=== PATIENT | female | born 1950 | race Caucasian/White ===

== ENCOUNTER → 2020-03-22 | Day surgery (SDC) | payer OTHER ==
--- NOTE | 2020-03-23 11:35 | OP ---
DATE OF OPERATION: 03/22/2020 PREOPERATIVE DIAGNOSIS: Abnormal right mammography. POSTOPERATIVE DIAGNOSIS: Abnormal right mammography. PROCEDURE: Right breast stereotactic needle biopsy with clip x2. SURGEON: Crystal Newell MD ANESTHESIA: Local. COMPLICATIONS: None. This is a sterile procedure. INDICATION FOR PROCEDURE: Patient underwent routine screening mammography that noted new calcification in the right 4 o'clock posteriorly. On my review, I felt there were some calcifications in the outer right breast as well that were new compared to her mammography in 2018, therefore my recommendation was a needle biopsy of both these areas. The procedure was discussed with her, all questions answered. PROCEDURE IN DETAIL: Patient was brought to [facility] in [place], laid prone on the [place] table. Using the CC approach, the calcifications in the 4 o'clock posterior right breast were identified. A sterile prep was obtained. A target was chosen. There was a positive stroke margin. Using Betadine, 1% lidocaine, a 9-gauge Suros device was used to take several cores from this area. Cores showed calcifications within them. These were handled using calcification protocol. A bar-shaped clip was deployed in the area. Hemostasis was assured with direct pressure. Next the patient was repositioned, and the calcifications in the outer right breast were identified. A sterile prep was obtained. A target was chosen. There was a positive stroke margin. Using Betadine, 1% lidocaine, a new needle was used to take several cores from this area. Cores showed calcification within them. These were handled using calcification protocol. A bow tie-shaped clip was deployed in the area. Hemostasis was assured with direct pressure. Both the incisions were closed with Steri-Strips. She tolerated the procedure well and left breast imaging center in good condition. CRYSTAL NEWELL M.D. [id number]
--- NOTE | 2020-03-24 14:56 | PATH ---
Surgical Pathology Report Patient Name: BEE HILLS [facility]. Rec. #: [id number] /Age/Gender: 1950 (Age: 69) / F Account: [id number] Location: [facility] Taken: 03/22/2020 Received: 03/22/2020 Reported: 03/24/2020 Physicians: Crystal Min M.D. Specimen(s) Received A: RIGHT BREAST SITE 1 SPECIMEN WITH CALCIFICATIONS B: RIGHT BREAST SITE 1 SPECIMEN WITHOUT CALCIFICATIONS C: RIGHT BREAST SITE 2 SPECIMEN WITH CALCIFICATIONS D: RIGHT BREAST SITE 2 SPECIMEN WITHOUT CALCIFICATIONS Clinical History Nonpalpable lesion Mammographic findings: Microcalcification, suspicious Final Diagnosis A. breast, right, site 1, with calcifications, stereotactic biopsy: Benign breast tissue showing fibroadenoma with associated stromal calcifications. Focal usual ductal hyperplasia (UDH). B. breast, right, site 1 without calcifications, stereotactic biopsy: Benign breast tissue showing focal usual ductal hyperplasia (UDH) WITH APOCRINE METAPLASIA. C. breast, right, siTe 2 with calcifications, stereotactic biopsy: Breast tissue showing Fibroadenoma with associated stromal calcifications AND ATYPICAL LOBULAR HYPERPLASIA (ALH). (See note) D. breast, right, siTe 2 withOUT calcifications, stereotactic biopsy: Breast tissue SHOWINIG ATYPICAL LOBULAR HYPERPLASIA (ALH), usual ductal hyperplasia (UDH) AND SMALL radial scar. (See note) Note: The foci of ALH are negative for E-Cadherin (performed on blocks C&D at [facility]), which supports lobular phenotype. Electronically Signed Tarah Madrid M.D. Gross Description A. Received in formalin labeled "site 1 right breast with calcifications," is a 2.0 x 1.3 x 0.3 cm aggregate of multiple stevens-yellow, irregular to cylindrical portions of fibroadipose tissue. The formalin is filtered and the specimen is entirely submitted in one cassette. B. Received in formalin labeled "site 1 right breast specimen without calcifications," is a 3.8 x 2.0 x 0.3 cm aggregate of multiple stevens-yellow, irregular to cylindrical portions of fibroadipose tissue. The formalin is filtered and the specimen is entirely submitted in 2 cassettes. C. Received in formalin labeled "site 2 right breast with calcifications," is a 1.7 x 1.5 x 0.3 cm aggregate of multiple stevens-yellow, irregular to cylindrical portions of fibroadipose tissue. The formalin is filtered and the specimen is entirely submitted in one cassette. D. Received in formalin labeled "site 2 right breast specimen without calcifications," is a 2.0 x 1.5 x 0.3 cm aggregate of multiple stevens-yellow, irregular to cylindrical portions of fibroadipose tissue. The formalin is filtered and the specimen is entirely submitted in one cassette. Time to formalin fixation: 10-16 minutes Total formalin fixation time: Approximately 6 hours. 03/22/2020 edelmira03/22/2020
== END | disposition home or self-care (01) ==
LOC: FMAMMOTONE 10:38
PROVIDERS: ATTEND Surgery
PROC: 0HBT3ZX Excision of Right Breast, Percutaneous Approach, Diagnostic (ICD-10-PCS; principal; 2020-03-22)
DX: D24.1 Benign neoplasm of right breast (principal); N60.81 Other benign mammary dysplasias of right breast; N60.11 Diffuse cystic mastopathy of right breast; N60.49 Mammary duct ectasia of unspecified breast; N64.89 Other specified disorders of breast; R92.1 Mammographic calcification found on diagnostic imaging of breast
CPT/HCPCS: 19081; 76098-TC-FY; 87899; 88305-TC; 88342-TC; A4648

== ENCOUNTER 2020-05-05 05:00 | Day surgery (SDC) | payer OTHER ==
[2020-05-04 10:01] VITALS: BMI 30.2
[~2020-05-05 05:00] MED LIST: LIDOCAINE HCL 1%, 10 MG/ML (20ML VIAL) ID ONE
--- OUTSIDE RECORDS SUMMARY | 2020-05-05 05:10 | XMS ---
:1950 Author Organization [facility] Support Name Relationship Address Phone RE, RETIRED Unavailable Unavailable Unavailable RE Unavailable Unavailable Unavailable CRISTA FLORES SON [address] [place] [address] Re-disclosure Warning The records that you are about to access may contain information from federally- assisted alcohol or drug abuse programs. If such information is present, then the following federally mandated warning applies: This information has been disclosed to you from records protected by federal confidentiality rules (42 CFR part 2). The federal rules prohibit you from making any further disclosure of this information unless further disclosure is expressly permitted by the written consent of the person to whom it pertains or as otherwise permitted by 42 CFR part 2. A general authorization for the release of medical or other information is NOT sufficient for this purpose. The Federal rules restrict any use of the information to criminally investigate or prosecute any alcohol or drug abuse patient.The records that you are about to access may contain highly sensitive health information, the redisclosure of which is protected by Article 27-F of the [facility] Public Health law. If you continue you may haveaccess to information: Regarding HIV / AIDS; Provided by facilities licensed or operated by the [facility] Office of Mental Health; or Provided by the [facility] Office for People With Developmental Disabilities. If such information is present, then the following [facility] mandated warning applies: This information has been disclosed to you from confidential records which are protected by state law. State law prohibits you from making any further disclosure of this information without the specific written consent of the person to whom it pertains, or as otherwise permitted by law. Any unauthorized further disclosure in violation of state law may result in a fine or care home sentence or both. A general authorization for the release of medical or other information is NOT sufficient authorization for further disclosure. Insurance Providers Payer name Policy type Policy ID Covered Covered constitution party's Policy P lisha / Coverage constitution party ID relationship to [facility] ormation type [facility] [id number] MEDICARE Results ID Date Data Source [id number] 04/30/2020 10:55:00 AM EDT [facility] Name Value Range Interpretation Description Data Sup porting Code Source(s) Document(s ) SARS [facility] coronavirus 2 RNA This lab was ordered by [facility] and reported by [facility]. Procedure
[2020-05-05] MEDS ORDERED: LIDOCAINE HCL 1%, 10 MG/ML (20ML VIAL) ONE (09:32)
[2020-05-05] MEDS ORDERED: MIDAZOLAM HCL 2 MG/2 ML SINGLE DOSE VIAL ONE (10:31)
[2020-05-05] MEDS ORDERED: ceFAZolin SODIUM 1 GM VIAL IVPB ONE (10:45)
[2020-05-05] MEDS ORDERED: LIDOCAINE HCL 1%, 10 MG/ML (20ML VIAL) ID ONE ×2 (10:49)
[2020-05-05] MEDS ORDERED: ONDANSETRON 4 MG/2 ML VIAL IVPUSH PRN (11:21)
[2020-05-05] MEDS ORDERED: PROMETHAZINE HCL 25 MG/1 ML VIAL IVPUSH PRN (11:21)
[2020-05-05] MEDS ORDERED: oxyCODONE HCL 5 MG TABLET PO PRN (11:21)
[2020-05-05] MEDS ORDERED: LACTATED RINGERS SOLUTION 1,000 ML IV SCH (11:30)
[2020-05-05 13:38] VITALS: BP 146/66; PULSE 93; TEMP 98.4
--- NOTE | 2020-05-07 11:05 | OP ---
DATE OF OPERATION: 05/05/2020 PREOPERATIVE DIAGNOSIS: Right breast atypical lobular hyperplasia. POSTOPERATIVE DIAGNOSIS: Right breast atypical lobular hyperplasia. PROCEDURE: Right wire localized lumpectomy. SURGEON: Clau Newell MD ANESTHESIA: General. ESTIMATED BLOOD LOSS: Minimal. COMPLICATIONS: None. DISPOSITION: Stable at end of procedure. INDICATIONS FOR PROCEDURE: Patient had a stereotactic needle biopsy with microcalcifications in the outer right as well as inferior right breast. The inferior was usual duct hyperplasia and the outer was atypical lobular hyperplasia. My recommendation was excision. The procedure was discussed with all the questions answered. PROCEDURE IN DETAIL: Patient was brought to [facility] in [place], taken down to Breast Imaging where wire was used to localize the clip in the outer right breast and then brought to the operating room and, after induction of general anesthesia and IV antibiotics, the right breast was prepped and draped in the usual sterile fashion. The area in the outer right breast was anesthetized with 1% lidocaine without epinephrine. The radial incision was made in the outer right breast and the wire was used as a guide to get down to the area of interest which was excised en bloc, tagged with a long stitch lateral, short stitch superior, sent for specimen radiograph as a right breast lumpectomy. Specimen radiograph showed the clip and wire to be intact within the specimen. This was then sent to Pathology in formalin. Hemostasis assured with electrocautery. The parenchyma was approximated with interrupted 2-0 Vicryl, skin approximated with interrupted 3-0 Vicryl and running 4-0 Prolene. A sterile dressing with Tegaderm and 4 x 4's applied. She tolerated the procedure well, was extubated on the operating room table, taken to recovery in good condition. JOAN NEWELL M.D. [id number]
--- NOTE | 2020-05-09 17:01 | PATH ---
Surgical Pathology Report Patient Name: BEE HILLS [facility]. Rec. #: [id number] /Age/Gender: 1950 (Age: 69) / F Account: [id number] Location: [facility] Taken: 05/05/2020 Received: 05/05/2020 Reported: 05/09/2020 Physicians: Crystal Min M.D. Specimen(s) Received RIGHT BREAST LUMPECTOMY Clinical History None given Final Diagnosis BREAST, RIGHT, LUMPECTOMY: LOBULAR CARCINOMA IN SITU (LCIS) AND SMALL RADIAL SCAR. ATYPICAL LOBULAR HYPERPLASIA (ALH). PROLIFERATIVE FIBROCYSTIC CHANGES INCLUDING STROMAL FIBROSIS, MICROCYSTS, CYSTIC APOCRINE METAPLASIA, COLUMNAR CELL CHANGES, SCLEROSING ADENOSIS, FOCAL SECRETORY CHANGE, AND USUAL DUCTAL HYPERPLASIA, WITH ASSOCIATED MICROCALCIFICATIONS. CHANGES OF PRIOR BIOPSY PRESENT. SEE COMMENT. Comment: Immunohistochemical stain performed and interpreted at [facility] show LCIS and ALH are negative for E-cadherin. Positive and negative controls (internal if applicable) show appropriate results. Electronically Signed Mila Whitney M.D. Gross Description Received fresh on [employer], labeled "right breast lumpectomy," is a 6.2 x 4.3 x 1.3 cm. stevens-yellow, irregular, portion of fibroadipose tissue with a needle localization wire present. There is a short suture marking the superior aspect and a long suture marking the lateral aspect, per the surgeon. There is no skin or nipple present. The specimen is inked as follows: superior and lateral blue; inferior green; medial yellow; anterior red; deep black. The specimen is serially sectioned from lateral to medial. Sectioning reveals multifocal white fibrous tissue. There is a garcia metallic biopsy clip identified. No definitive mass is identified. The specimen is entirely and sequentially submitted in 14 cassettes with the lateral margin in cassette 1, the medial margin in cassette 14 and the biopsy clip in cassette 10 (one bisected section each in cassettes 7/8, 04/20, /). Total formalin fixation time: Approximately 7 hours DL/05/05/2020 saudi/05/05/2020
== END 2020-05-05 15:00 | disposition home or self-care (01) ==
LOC: JASU-SURG 05:00
PROVIDERS: ATTEND Surgery
PROC: 0HBT0ZZ Excision of Right Breast, Open Approach (ICD-10-PCS; principal; 2020-05-05 10:00)
DX: D05.01 Lobular carcinoma in situ of right breast (principal)
CPT/HCPCS: 19281; 76098-TC-FY; 88307-TC; 88342-TC; 94760